=== PATIENT | male | born 1990 | race Caucasian/White ===

== ENCOUNTER 2019-07-29 06:03 | Day surgery (SDC) | payer OTHER ==
[~2019-07-29] VITALS: Ht 175.3 cm; Wt 76.2 kg
[2019-07-29 06:29] VITALS: BP 121/66
[2019-07-29 10:56] VITALS: BP 126/83
== END 2019-07-29 10:30 | disposition home or self-care (01) ==
LOC: DS 06:03 → OR 07:30 → DS 10:30
DX: N48.1 Balanitis (principal)
CPT/HCPCS: J0690; J2001; J3010; J3490